=== PATIENT | female | born 1970 | race Caucasian/White ===

== ENCOUNTER → 2018-03-25 | Emergency (ER) | payer OTHER ==
[~2018-03-25] VITALS: Ht 170.2 cm; Wt 58.5 kg
[~2018-03-25] MED LIST: ALEVE220 MG PO; ANTI DEPRESSANT; BUTALB-APAP-CA1 EACH PO; CELEXA 20 MG TA20 M1 PO; CLONAZEPAM 0.50.5 M1 PO; CLONAZEPAM 1 MG1 M1 PO; FISH OIL 1,0001 EAC7 PO; FISH OIL 1,2001 EAC3 PO; FLOMAX0.4 MG PO; IBUPROFEN 800800 M1 PO; MACROBID 100 M100 M1 PO; NEURONTIN600 MG PO; NORCO 5-325 TA1 EAC1 PO; ONDANSETRON HCL4 M2 PO; PERCOCET 5-3251 EACH PO; PHENAZOPYRIDIN200 M2 PO; POTASSIUM20; PROPRANOLOL 1010 M1; PROPRANOLOL 1010 M1 PO; PROPRANOLOL 20M20 M1 PO; ROBAXIN 750 MG750 M1 PO; TAMSULOSIN HCL0.4 MG PO; TOVIAZ8 MG PO; VITAMIN B-12500 MCG PO; VITAMIN D32000 UNIT PO
[2018-03-25 12:51] LABS: ABSOLUTE EOSINOPHILS 0.2 thou/uL (0.0-0.7); ABSOLUTE LYMPHOCYTES 1.3 thou/uL (0.8-5.3); ABSOLUTE MONOCYTES 0.5 thou/uL (0.0-1.2); ABSOLUTE NEUTROPHILS 3.7 thou/uL (1.6-8.1); BASOPHILS 0.7 %; EOSINOPHILS 3.3 %; HEMOGLOBIN 13.8 gm/dL (12.0-15.0); LYMPHOCYTES 22.4 %; MCH 33.7 pg (26.0-34.0); MCHC 33.7 g/dL (28.0-37.0); MCV 100.1 fL (80.0-100.0); MPV 6.9 fl. (7.2-11.1); NUCLEATED RBCS 0 /100WBC; PLATELET COUNT* 371 thou/uL (150-400); POLYS 64.6 %; RBC 4.09 mil/uL (4.20-5.00); RDW-CV 15.1 % (10.5-14.5); WBC 5.7 thou/uL (4.0-11.0)
[2018-03-25 13:00] LABS: CALCIUM 8.7 mg/dL (8.5-10.1); POTASSIUM 3.8 mmol/L (3.5-5.1)
[2018-03-25 13:02] LABS: URINE BLOOD 3+ (Negative); URINE CLARITY TURBID; URINE COLOR ORANGE; URINE UROBILINOGEN >= 8.0 E.U./dl (0.2-1.0)
[2018-03-25 13:03] LABS: SSA (PROTEIN CONFIRMATORY) 4+ (APPROX. >= 500) mg/dL (Negative); URINE LEUKOCYTES-REFLEX 2+ (Negative); URINE NITRITE-REFLEX POSITIVE (Negative)
[2018-03-25 13:04] LABS: ACETEST (KETONE CONFIRMATORY) Negative (Negative); ICTOTEST (BILI CONFIRMATORY) Negative (Negative); URINE REDUCING SUBSTANCE NEGATIVE (Negative)
[2018-03-25 13:04] LABS: ALBUMIN 3.8 g/dL (3.4-5.0); TOTAL BILIRUBIN 0.4 mg/dL (<0.1-1.0); TOTAL PROTEIN 7.4 g/dL (6.4-8.2)
[2018-03-25 13:07] LABS: CASTS None Seen /LPF (None Seen); CRYSTALS None Seen /LPF (None Seen); MUCUS 4-6 Moderate strn/LPF (None Seen); SQUAMOUS >10 Many /LPF (0-3); URINE RBC >20 Many /HPF (0-2)
[2018-03-25 13:09] LABS: BACTERIA-REFLEX 1-9 Few /HPF (None Seen)
[2018-03-25 15:41] VITALS: BP 122/73
== END ==
LOC: M.ERS 12:03
PROVIDERS: Nurse Practitioner Family
DX: N20.0 Calculus of kidney (principal); N39.0 Urinary tract infection, site not specified; Z87.440 Personal history of urinary (tract) infections; Z98.890 Other specified postprocedural states; Z88.8 Allergy status to other drugs, medicaments and biological substances; Z88.0 Allergy status to penicillin

== ENCOUNTER 2019-04-16 15:01 | Emergency (ER) | payer OTHER ==
[~2019-04-16] VITALS: Ht 162.6 cm; Wt 56.7 kg
[2019-04-16] MEDS ORDERED: FLEXERIL PO (17:11)
[2019-04-16] MEDS ORDERED: NORCO 5-325 TA1 EACH PO (17:11)
[2019-04-16 17:39] VITALS: BP 130/84
== END 2019-04-16 17:39 | disposition home or self-care (01) ==
LOC: M.ERS 15:01
DX: S22.31XA Fracture of one rib, right side, initial encounter for closed fracture (principal); Z98.890 Other specified postprocedural states; Z88.0 Allergy status to penicillin; Z88.8 Allergy status to other drugs, medicaments and biological substances; W18.2XXA Fall in (into) shower or empty bathtub, initial encounter; Y93.89 Activity, other specified; Y92.89 Other specified places as the place of occurrence of the external cause; Y99.8 Other external cause status

== ENCOUNTER 2020-12-02 17:51 | Emergency (ER) | payer OTHER ==
[~2020-12-02] VITALS: Ht 170.2 cm; Wt 59.0 kg
[~2020-12-02 17:51] MED LIST changes: +FLEXERIL PO; +NORCO 5-325 TA1 EACH PO
[2020-12-02] MEDS ORDERED: XANAX1 MG PO (18:14)
[2020-12-02] MEDS ORDERED: DULOXETINE HCL20 MG PO (18:15)
[2020-12-02 18:49] LABS: URINE BILIRUBIN NEGATIVE (Negative); URINE BLOOD 1+ (Negative); URINE CLARITY CLEAR; URINE COLOR YELLOW; URINE GLUCOSE-RANDOM NEGATIVE (Negative); URINE KETONES NEGATIVE (Negative); URINE LEUKOCYTES-REFLEX NEGATIVE (Negative); URINE NITRITE-REFLEX NEGATIVE (Negative); URINE PROTEIN TRACE (Negative); URINE UROBILINOGEN 0.2 E.U./dl (0.2-1.0)
[2020-12-02 19:11] LABS: ABSOLUTE EOSINOPHILS 0.2 thou/uL (0.0-0.7); ABSOLUTE LYMPHOCYTES 2.2 thou/uL (0.8-5.3); ABSOLUTE MONOCYTES 0.5 thou/uL (0.0-1.2); ABSOLUTE NEUTROPHILS 4.6 thou/uL (1.6-8.1); BASOPHILS 0.6 %; EOSINOPHILS 3.1 %; HEMATOCRIT 39.7 % (37.0-47.0); HEMOGLOBIN 13.4 gm/dL (12.0-15.0); LYMPHOCYTES 28.7 %; MCH 32.7 pg (26.0-34.0); MCHC 33.6 g/dL (28.0-37.0); MCV 97.2 fL (80.0-100.0); MONOCYTES 6.5 %; MPV 7.1 fl. (7.2-11.1); NUCLEATED RBCS 0 /100WBC; PLATELET COUNT* 363 thou/uL (150-400); POLYS 61.1 %; RBC 4.08 mil/uL (4.20-5.00); RDW-CV 13.1 % (10.5-14.5); WBC 7.6 thou/uL (4.0-11.0)
[2020-12-02 19:19] LABS: CALCIUM 8.3 mg/dL (8.5-10.1); CREATININE 0.7 mg/dL (0.6-1.3)
[2020-12-02 19:19] LABS: BACTERIA-REFLEX >30 Many /HPF (None Seen); CASTS None Seen /LPF (None Seen); CRYSTALS None Seen /LPF (None Seen); SQUAMOUS >10 Many /LPF (0-3); URINE RBC 0-2 Rare /HPF (0-2); URINE WBC-REFLEX 6-15 Few /HPF (0-5)
[2020-12-02 19:23] LABS: TOTAL BILIRUBIN 0.4 mg/dL (<0.1-1.0); TOTAL PROTEIN 7.3 g/dL (6.4-8.2)
[2020-12-02] MEDS ORDERED: ZOFRAN ODT4 MG PO (22:49)
[2020-12-02] MEDS ORDERED: BENTYL 10 MG CA10 MG PO (22:49)
[2020-12-02] MEDS ORDERED: KLOR-CON 10 ER10 MEQ PO (22:53)
[2020-12-02 23:04] VITALS: BP 135/70
== END 2020-12-02 23:05 | disposition home or self-care (01) ==
LOC: M.ERS 17:51
PROVIDERS: Nurse Practitioner Family; Nurse Practitioner Psychiatric/Mental Health
DX: K52.9 Noninfective gastroenteritis and colitis, unspecified (principal); E87.6 Hypokalemia; Z79.1 Long term (current) use of non-steroidal anti-inflammatories (NSAID); Z79.899 Other long term (current) drug therapy; Z88.0 Allergy status to penicillin; Z88.8 Allergy status to other drugs, medicaments and biological substances

== ENCOUNTER → 2021-03-12 | Outpatient (CLI) | payer OTHER ==
[~2021-03-12] MED LIST changes: +BENTYL 10 MG CA10 MG PO; +DULOXETINE HCL20 MG PO; +KLOR-CON 10 ER10 MEQ PO; +XANAX1 MG PO; +ZOFRAN ODT4 MG PO
== END ==
LOC: M.MRI 02-23 16:05
PROVIDERS: ATTEND Surgery
DX: R19.03 Right lower quadrant abdominal swelling, mass and lump (principal)